=== PATIENT | female | born 1975 | race Caucasian/White ===

== ENCOUNTER 2025-02-08 14:48 | Emergency (ER) | payer MEDICARE, MEDICAID, SELFPAY ==
[2025-02-08 14:49] VITALS: BMI 23.2
--- NOTE | 2025-02-08 14:50 | XR_ITS ---
Examination: Hand, right 3 views Technique: Hand AP, oblique, lateral 3 views Date and time of exam: February 08, 2025 1523 hours INDICATIONS: Injury to the hand 2 days ago with hand pain FINDINGS: No acute fracture. No dislocation No foreign body IMPRESSION: No acute fracture
[2025-02-08 15:09] VITALS: BP 138/83; PULSE 102; RESP 16; TEMP 36.7; O2SAT 94
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
[2025-02-08] MEDS: IBUPROFEN TAB 600 MG TABLET PO (15:57)
== END 2025-02-08 17:56 | disposition home or self-care (01) ==
PROVIDERS: Emergency Provider Emergency Medicine
DX: S63.616A Unspecified sprain of right little finger, initial encounter (principal); M19.041 Primary osteoarthritis, right hand; W22.8XXA Striking against or struck by other objects, initial encounter; Y93.55 Activity, bike riding
CPT/HCPCS: 73130; 73140; 99283; A9270

== ENCOUNTER 2025-09-22 17:24 | Emergency (ER) | payer MEDICAID, SELFPAY ==
[2025-09-22 17:49] VITALS: BP 133/92; PULSE 97; RESP 17; TEMP 36.6; O2SAT 95; BMI 20.3
--- NOTE | 2025-09-22 17:54 | XR_ITS ---
Examination: Hand, left 3 views Technique: Hand AP, oblique, lateral 3 views Date and time of exam: September 22, 2025, 1810 hours INDICATIONS: Hand pain beginning 5 days ago, no trauma FINDINGS: Moderate osteopenia. Significant osteoarthritis distal interphalangeal joints second through fifth digits especially third digit No erosive arthritis Moderate osteoarthritis first carpometacarpal joint IMPRESSION: Osteoarthritis as above especially distal interphalangeal joint third digit
--- NOTE | 2025-09-22 17:54 | XR_ITS ---
Examination: Wrist, left 3 views Technique: Wrist AP, oblique, lateral 3 views Date and time of exam: September 22, 2025, 1810 hours INDICATIONS: Wrist pain 4 days no trauma. FINDINGS: Subluxation at the first carpometacarpal joint, age indeterminate Advanced osteoarthritis first carpometacarpal joint No acute fracture IMPRESSION: Advanced osteoarthritis first carpometacarpal joint Subluxation of the first metacarpal phalangeal joint, age indeterminate, clinical correlation advised
--- NOTE | 2025-09-22 17:54 | PD.EDRME ---
Rapid Medical Screening Exam RME Arrival date/time: 09/22/25 17:24 49-year-old female presents to the Emergency Department today complains of left hand left wrist pain patient for pain worse with movement patient worsened to onset x 3 days patient unsure whether or not she had an injury Chief Complaint: Hand/Wrist Problems Time Seen by Provider: 09/22/25 17:56 Vital signs: Vital Signs Temperature 97.9 F 09/22/25 17:49 Pulse Rate 97 09/22/25 17:49 Respiratory Rate 17 09/22/25 17:49 Blood Pressure 133/92 H 09/22/25 17:49 Pulse Oximetry (%) 95 09/22/25 17:49 Oxygen Delivery Method Room Air 09/22/25 17:49 Vital signs reviewed by provider: Yes Exam: On exam patient well-appearing does not appear look toxic I do not appreciate any acute abnormality of the hand or wrist Clinical Impression: Imaging obtained
[2025-09-22] MEDS: IBUPROFEN TAB 600 MG TABLET PO (18:06)
--- NOTE | 2025-09-22 20:42 | PD.EDHAND ---
Upper Extremity Injury RME/HPI General Chief Complaint: Hand/Wrist Problems Stated Complaint: LEFT HAND PAIN X3D,UNSURE IF SHE INJURED IT Time Seen by Provider: 09/22/25 17:56 Arrival date/time: 09/22/25 17:24 RME / HPI RME / HPI narrative: 09/22/25 17:24 49-year-old female presents to the Emergency Department today complains of left hand left wrist pain patient for pain worse with movement patient worsened to onset x 3 days patient unsure whether or not she had an injury 09/22/25 08:00 PM 49-year-old female presents to the ER complaining of left hand and wrist pain worse with movement x 3 days and she was not sure if she hit it on something. Denies any fever, numbness, tingling, weakness Exam: On exam patient well-appearing does not appear look toxic I do not appreciate any acute abnormality of the hand or wrist Impression: Imaging obtained Related Data Previous Rx's ?Medication ?Instructions ?Recorded hydrocodone 5 mg-acetaminophen 325 1 tab PO BID PRN pain #10 tabs 07/04/23 mg tablet ibuprofen 600 mg tablet 600 mg PO Q6H #30 tabs 07/04/23 Allergies Allergy/AdvReac Type Severity Reaction Status Date / Time divalproex sodium (From Allergy Severe Swelling Verified 09/22/25 17:26 Depakote) of Lip/Tongue/Throat Penicillins Allergy Severe Swelling Verified 09/22/25 17:26 of Lip/Tongue/Throat ED Exam Narrative Physical exam: Constitutional: Vital Signs Reviewed. Well appearing. No acute distress. Not toxic appearing. Head: Normocephalic, atraumatic. Eyes: Conjunctiva clear. ENT: Mucous membranes moist. Neck: Trachea midline. Normal range of motion. No nuchal rigidity. Respiratory: Normal effort. No respiratory distress or accessory muscle use. Neuro: Alert and oriented. Speech normal. No focal gross motor or sensory deficits observed. Skin: Warm, dry, normal color. Psych: Pleasant. Normal affect. Cooperative. Left Upper Extremity: + TTP at L 1st digit. + CMC grind test. + LROM and strength 4/5 secondary to pain for L 1st MCP, and CMC joint. No erythema, warmth. Cap refill < 2 seconds. Herbeden's nodes noted through out digits. No erythema, warmth. Radial pulse 2+ RRR for LUE Course Quality Measures none Orders Category Date Time Status splint [Splint / Immobilizer] STAT Care 09/22/25 20:17 Active XR hand comp LT min 3V Stat Exams 09/22/25 17:54 Completed XR wrist comp LT min 3V Stat Exams 09/22/25 17:54 Completed Ibuprofen Tab [Motrin Tab] Med 09/22/25 17:54 Discontinued 600 mg PO X1 ONE Lidocaine 1% 20 ml [Xylocaine 1% 20 ML] Med 09/22/25 21:25 Discontinued 20 ml INFL X1 ONE Vital Signs Vital signs: Vital Signs Temperature 97.9 F 09/22/25 17:49 Pulse Rate 97 09/22/25 17:49 Respiratory Rate 17 09/22/25 17:49 Blood Pressure 133/92 H 09/22/25 17:49 Pulse Oximetry (%) 95 09/22/25 17:49 Oxygen Delivery Method Room Air 09/22/25 17:49 PROCEDURES: Orthopedic Joint Reduction Joint #1: Time Out Performed: Yes Side: Left Joint Reduction Location: finger Analgesia: none Technique used: traction/counter-traction and direct manipulation Post-reduction neuro exam: intact and no change Post-reduction vascular: intact and no change Post Reduction X-Ray Obtained: No Post Reduction X-Ray Results: not reduced Splint Applied: Yes Patient Tolerated Procedure: well Additional Comments: Patient declined local anesthesia. Thumb spica velcro splint applied, joint is already very mobile. Reduction performed by Dr. Nagy. Extremity Injury MDM Narrative MDM Narrative:: MDM 49-year-old female presents to the ER complaint of left first digit pain which has been persistent for the past 3 days without any specific incident of falling onto or having any direct trauma. X-ray concerning for first carpal metacarpal phalangeal joint subluxation as well as arthrosis Reduction attempted with Dr. Branden Lin and thumb spica placed Digit remains distally neurovascular intact with soft compartments No infectious etiology Given a hyper mobile joint in the setting of significant arthritis reduction was felt to be unsuccessful however thumb spica splint was placed advised rest, ice, elevation, Tylenol and ibuprofen, follow-up with hand surgeon in 1 to 2 days, strict ER return precautions advised Patient data External records reviewed:: None Clinical information provided by:: patient Social determinants that could affect healthcare access:: none Patient has the following chronic illnesses:: As noted How is presenting disease/condition affected by chronic disease/condition?: uneffected by Evaluation data The following diagnostics were reviewed and interpreted by me:: radiology exam(s) Lab and/or radiology exams considered but not ordered:: Additional Labs and radiology considered, but not ordered as they were not clinically indicated at this time. Interpretation Summary: Advanced osteoarthrosis of first digit CMC joint with subluxation age-indeterminate. Osteoarthrosis of DIP joints throughout mainly of the third digit. No acute fracture. Medications / Prescriptions Medications or Prescriptions considered but not ordered:: I considered prescription management (both outpatient prescriptions AND drug treatment in the ER) and decided that this was necessary and was prescribed as charted. Medication administrations:: Medication Administration History Discontinued Medications Ibuprofen (Ibuprofen Tab 600 Mg Tablet) 600 mg PO X1 ONE Stop: 09/22/25 17:55 Last Admin: 09/22/25 18:06 Dose: 600 mg Documented By: MARISELA Lidocaine HCl (Lidocaine Hcl 1% 20 Ml Vial) 20 ml INFL X1 ONE Stop: 09/22/25 21:26 As noted Consultations Consultation(s) initiated? (list below): No Consultation #1 (Physician, Specialty, Details): Dr. Nagy Time: 09:45 Diagnosis Upper Extremity Injury Differential Diagnosis: sprain and strain of wrist, finger sprain and dislocation of finger Most likely diagnosis given after review of the tests above:: First left carpal metacarpal subluxation Admission Indicated Admission indicated?: not indicated Admission Request Was there a request for admission?: No Disposition Plan Disposition Plan: Discharge Discharge Attestation Discharge Attestation: The patient and all family members were given an opportunity to ask questions and understood the discharge instructions. Discharge instructions specifically effects, indications for sooner follow up or return to the emergency department, and the expected course of current diagnosis. Patient condition: Stable Discharge Plan Plan Patient Disposition: HOME (Self Care) Patient condition on transfer: Stable Prescriptions/Referrals Prescriptions/Med Rec: No Action hydrocodone-acetaminophen 5-325 mg tablet 1 tab PO BID MDD 10 PRN (Reason: pain) Qty: 10 0RF ibuprofen 600 mg tablet 600 mg PO Q6H Qty: 30 0RF Referrals: No Primary/Family,Physician [Primary Care Provider] - In 1 week LUCIANA MAYORGA [Referring Provider] - In 1 week Problem List Clinical Impression: Dislocation of finger Impression comment: Left first carpometacarpal subluxation Patient/Caregiver Discharge Instructions Education Materials: Osteoarthritis Thumb Additional Instructions: Follow up with your primary medical doctor and a hand surgeon within 24 hours. Return to the Emergency Room immediately for any new, worsening, continuing symptoms or any concerns at all. Return to the Emergency Room within 24 hours if you are unable to follow up with your primary medical doctor and a hand surgeon within 24 hours. Print Language: Danish Stand Alone Forms: Yany Award Info., Patient Portal Info Letter PA/PANEL INSTALLER Supervising Physician PA/PANEL INSTALLER Supervising Physician: Dr. Nagy
[2025-09-22 20:59] VITALS: BP 122/86; PULSE 100; RESP 18; TEMP 36.8; O2SAT 95
== END 2025-09-22 21:50 | disposition home or self-care (01) ==
PROVIDERS: Emergency Provider Emergency Medicine
DX: S63.052A Subluxation of other carpometacarpal joint of left hand, initial encounter (principal); S63.045A Dislocation of carpometacarpal joint of left thumb, initial encounter; M25.532 Pain in left wrist
CPT/HCPCS: 26700; 73110; 73130; 99283; A9270

== ENCOUNTER 2025-09-25 04:50 | Emergency (ER) | payer MEDICAID, SELFPAY ==
[2025-09-25] VITALS (10 sets, daily range): BP systolic 93–136; BP diastolic 66–96; PULSE 70–94; RESP 16–18; TEMP 36.3–36.7; O2SAT 90–100
--- NOTE | 2025-09-25 | XR_ITS ---
MRI abdomen, without contrast. MRCP Date and time of exam: September 25, 2025, 1256 hours INDICATIONS: Nausea vomiting diarrhea today, enlarged common bile duct [address] study this morning Technique: Multiple axial and coronal images of the abdomen have been obtained with the Siemens 1.5T MRI scanner. Images obtained included T1 weighted transverse images, T2-weighted transverse images, T2-weighted transverse images fat-suppressed, T2 weighted haste fat suppressed transverse images, T1 weighted images, in and out of phase images, T2-weighted coronal images, breath hold, T2 weighted haze coronal images as well as T2 weighted coronal thick slab images, MRCP. Findings: Intrahepatic biliary tract dilatation Absent gallbladder Abnormal enlarged common bile duct 13 mm Meniscus defect in the distal common bile duct, coronal image 12 measuring 6 mm Minimal dilatation pancreatic duct No peripancreatic edema Spleen is not enlarged No ascites IMPRESSION: Abnormal extrahepatic biliary tract dilatation with meniscus defect in the distal common bile duct suspicious for 6 mm impacted stone, recommend ERCP follow-up
--- NOTE | 2025-09-25 05:00 | PC.NURSE ---
ASSUMED CARE OF PATIENT, PT COMES FROM HALF-WAY C/O NAUSEA AND VOMITING. UPON ARRIVAL TO ER PATIENT ABLE TO ANSWER HER NAME AND BUT STATES SHE DOESNT KNOW ANYTHING ELSE. PT REFUSING IV, MEDS, AND LABS. PT IN NO ACUTE DISTRESS, HAS NOT VOMITED SINCE ARRIVAL TO ER AND WILL CONTINUE WITH PLAN OF CARE
--- NOTE | 2025-09-25 05:04 | EDRME_ITS ---
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 No other complaints. I have greeted and performed a focused initial assessment of this patient. A c omprehensive ED assessment and evaluation of the patient, analysis of all test results, and completion of the medical decision making process will be conducted by additional ED providers. Exam: Diffuse abdominal pain, difficult to localize. Clinical Impression: AMS, Abdominal pain, Vomiting.
--- NOTE | 2025-09-25 05:36 | EKG_ITS ---
[facility] Test Date: 2025-09-25 Pat Name: JAISON JEONG Department: Room: - Gender: Female Insole Tacker: : 1975 Requested By: Kelechi Schumacher Order Number: [id number] Reading MD: Kelechi Schumacher Measurements Intervals [place] Rate: 95 P: 74 WA: 183 QRS: 71 QRSD: 93 T: 45 QT: 366 QTc: 461 Interpretive Statements SINUS RHYTHM POSSIBLE LEFT ATRIAL ENLARGEMENT [-0.1mV P-WAVE IN V1/V2] No previous ECG available for comparison /store/S0/[id number].pdf
--- NOTE | 2025-09-25 05:36 | XR_ITS ---
EXAMINATION: AP chest single view TECHNIQUE: AP portable semiupright chest single view Date and time: September 25, 2025, 0620 hours INDICATIONS: Shortness of breath chest pain today. FINDINGS: Normal heart size No pneumonia or pulmonary edema. Prominent osteopenia with old fracture left clavicle IMPRESSION: No active disease
--- NOTE | 2025-09-25 05:37 | XR_ITS ---
Examination: CT brain head without contrast. 2-D sagittal coronal reconstructions Date and time of exam: September 25, 2025, 0808 hours INDICATIONS: Altered mental status beginning this morning CTDI: vol (mGy): 45.6 DLP: (mGycm): 861 Technique: Multiple CT axial sections of the brain have been obtained, 5 mm slice thickness. Contrast has not been administered. 2-D sagittal, coronal reconstructions have been obtained Low dose protocols were performed. One or more of the following dose reduction techniques were used; automated exposure control, adjustment of the mA and/or KV according to patient size, use of iterative reconstruction technique. Findings: No significant ventricular enlargement. Intra-axial or extra-axial hemorrhage density is not seen. No mass effect or midline shift Basal cisterns are not remarkable. Fourth ventricle is midline. Cranial vault intact. Impression: Negative for acute hemorrhage, mass effect or midline shift Advise clinical correlation and follow-up accordingly
--- NOTE | 2025-09-25 05:37 | XR_ITS ---
Examination: CT abdomen with intravenous contrast CT pelvis with intravenous contrast 2-D coronal reconstructions 2-D sagittal reconstructions Date and time of exam: September 25, 2025, 0810 hours INDICATIONS: Generalized abdominal pain with nausea vomiting today. CTDI: vol (mGy) 11.8 DLP: (mGycm) 556 Technique: Multiple axial sections of the abdomen and pelvis have been obtained. 64 slice high-resolution scanner used. 3 mm axial sections have been obtained, post intravenous injection 60 cc [id number] 2-D sagittal, coronal reconstructions obtained. Low dose protocols were performed. One or more of the following dose reduction techniques were used; automated exposure control, adjustment of the mA and/or KV according to patient size, use of iterative reconstruction technique. Findings: Intrahepatic biliary tract dilatation Absent gallbladder Abnormal enlargement common bile duct 15 mm No definite common bile duct stones Minimal dilatation pancreatic duct 2.5 mm No pancreatic mass Spleen not enlarged No adrenal mass Normal or ureteral calculi, no hydronephrosis Aortic calcification no aneurysmal dilatation No bowel obstruction No pericecal inflammatory change No diverticulitis Atrophic uterus No pelvic mass Bladder intact Prominent osteopenia IMPRESSION: Abnormal extrahepatic biliary tract dilatation, common bile duct 15 mm, recommend hepatobiliary sonography follow-up
[2025-09-25 06:11] LABS: Influenza A Ag Negative; Influenza B Ag Negative
[2025-09-25 06:17] LABS: Base Excess, Venous 1 (-3-3); O2 Saturation, Venous 96 % (96-97); PCO2, Venous 45 mmHg (36-56); PO2, Venous 80 mmHg (15-58); pH, Venous 7.38 (7.33-7.66)
[2025-09-25 06:18] LABS: Lactate (Lactic Acid) 1.0 mMol/L (0.4-2.0)
[2025-09-25 06:20] LABS: Beta Hydroxybutyrate 0.1 mmol/L (<0.6)
[2025-09-25 06:36] LABS: Basophils # (Auto) 0.0 Thou/mm3 (0.0-0.2); Basophils % (Auto) 0 % (0-2.5); Eosinophils # (Auto) 0.1 Thou/mm3 (0.0-0.5); Eosinophils % (Auto) 1 % (0-10); Hematocrit 43.1 % (36.0-46.0); Hemoglobin 15.1 g/dL (12.0-16.0); Immature Granulocytes Auto 0.04 Thou/mm3 (0.00-0.00); Lymphocytes # (Auto) 1.5 Thou/mm3 (1.0-4.8); Lymphocytes % (Auto) 10 % (10-50); Mean Corpuscular HGB Conc 35.0 g/dl (31.0-37.0); Mean Corpuscular Hemoglobin 31.3 pg (25.0-35.0); Mean Corpuscular Volume 89 fL (80-100); Monocytes # (Auto) 1.0 Thou/mm3 (0.0-0.8); Monocytes % (Auto) 6 % (0-12); Neutrophils # (Auto) 12.9 Thou/mm3 (1.8-7.7); Neutrophils % (Auto) 83 % (37-80); Nucleated Red Blood Cell # 0.00 Thou/mm3 (0.00-0.00); Nucleated Red Blood Cell % 0 /100 WBC (0); Platelet Count 244 Thou/mm3 (140-440); RDW Standard Deviation 40.9 fL (36.4-46.3); Red Blood Count 4.83 Miln/mm3 (4.00-5.20); White Blood Count 15.7 Thou/mm3 (3.6-11.0)
[2025-09-25 06:46] LABS: Ammonia < 10 uMol/L (11-32)
[2025-09-25 06:50] LABS: HCG,Qualitative Serum Negative
[2025-09-25 06:51] LABS: Sed Rate (ESR) 11 mm/hr (0-30)
[2025-09-25 06:52] LABS: Alanine Aminotransferase 11 U/L (10-49); Albumin, Serum 4.2 gm/dL (3.5-5.0); Albumin/Globulin Ratio 1.8 (1.2-2.2); Alcohol, Blood Medical < 3.0 mg/dL (0-10.0); Alkaline Phosphatase 172 U/L (46-116); Amylase 88 U/L (30-118); Aspartate Amino Transferase 19 U/L (0-34); BUN/Creatinine Ratio 33 Ratio (12-20); Bilirubin,Direct < 0.1 mg/dL (0.0-0.3); Bilirubin,Total 0.2 mg/dL (0.3-1.2); Blood Urea Nitrogen 23 mg/dL (9-23); C-Reactive Protein < 0.5 mg/dL (0.0-0.9); Calcium 8.5 mg/dL (8.3-10.6); Calcium (Corrected) 8.5 mg/dL (8.5-10.1); Chloride 107 mMol/L (98-107); Creatine Kinase 71 U/L (34-171); Creatinine (Component) 0.7 mg/dL (0.6-1.3); Globulin 2.4 gm/dL (2.3-3.5); Glucose 113 mg/dL (74-106); Lipase 43 U/L (12-53); Magnesium 1.8 mg/dL (1.6-2.6); Osmolality,Calculated 285 (275-295); Potassium 4.1 mMol/L (3.4-5.1); Procalcitonin 0.04 ng/ml (0.0-0.49); Sodium 141 mMol/L (136-145); Thyroid Stimulating Hormone 2.25 uIU/mL (0.55-4.78); Total Protein 6.6 gm/dL (5.7-8.2); Troponin I < 0.002 ng/mL (0.0-0.045); eGFR > 60 See Note
[2025-09-25 07:00] LABS: Anion Gap 10 (7-16); Carbon Dioxide 24.1 mMol/L (20.0-31.0)
[2025-09-25 07:10] LABS: B-Type Natriuretic Peptide < 20 pg/mL (0-100)
[2025-09-25] MEDS: LEVOFLOXACIN/D5W 500 MG IVPB 500 MG/100 ML BAG 100 MG IV (07:50)
[2025-09-25] MEDS: SODIUM CHLORIDE 0.9% 1000 ML 1,000 ML 999 ML IV (07:52)
[2025-09-25 07:54] LABS: Collection Type, Urine Clean Catch
--- NOTE | 2025-09-25 07:59 | PC.NURSE ---
PT TAKEN TO CT.
[2025-09-25 08:06] LABS: Amphetamine/Methamp Scrn,U Positive (Negative); Bacteria,Urine Rare; Barbiturate Screen,Urine Negative (Negative); Benzodiazepines Screen,Urine Negative (Negative); Benzoylecgonine Screen, Ur Negative (Negative); Bilirubin,Urine Negative (Negative); Blood,Urine Negative (Negative); Clarity,Urine Clear (Clear/Hazy); Color,Urine Lt-Yellow (Lt Yel-Yel); Culture Indicated,Urine Not Indicated; Fentanyl Screen,Urine Positive (Negative); Glucose, Urine Negative (Negative); Ketones,Urine Negative (Negative); Leukocyte Esterase,Urine Positive (Negative); Nitrite,Urine Negative (Negative); Opiate Screen,Urine Negative (Negative); PH,Urine 6.5 (5.0-7.0); Protein,Urine Negative (Neg - Trace); RBC,Urine 6 /hpf (0-3); Specific Gravity,Urine 1.026 (1.001-1.035); Squamous Epithelial Cell,Urine 6 /hpf (0-5); THC Screen,Urine Positive (Negative); Urobilinogen,Urine Negative mg/dL (0.0-1.0); WBC,Urine 8 /hpf (0-5)
--- NOTE | 2025-09-25 09:44 | XR_ITS ---
Examination: Abdomen sonogram, Limited Date and time of exam: September 25, 2025, 1014 hours INDICATIONS: Enlarged common bile duct on CT examination today Technique: Real-time loving scale transabdominal sonographic images of the upper abdomen obtained. Findings: Absent gallbladder Enlarged common bile duct 17 mm no definite stones Pancreatic head 2.2 cm Liver 14.3 cm smooth contour Normal hepatopetal portal venous flow Patent IVC IMPRESSION: Enlarged common bile duct 17 mm, consider MRCP follow-up to exclude common bile duct stricture and/or stones
--- NOTE | 2025-09-25 12:02 | EDNOTE_ITS ---
Nausea/Vomit./Diarrhea-RME/HPI General Chief complaint: Nausea/Vomiting/Diarrhea Stated complaint: AMS, VOMITING Time Seen by Provider: 09/25/25 06:33 Arrival date/time: 09/25/25 04:50 Limitations: no limitations RME / HPI RME / HPI Narrative: [facility] to possible AMS, abdominal pain and vomiting just [employer]. No other complaints. I have greeted and performed a focused initial assessment of this patient. A comprehensive ED assessment and evaluation of the patient, analysis of all test results, and completion of the medical decision making process will be conducted by additional ED providers. DR. BROWNE MAIN ED EVALUATION: 49 year old female presents to the ED [facility] for evalaution of altered mental status, nausea, and vomiting today. Per medics, staff at the facility reported the patient had sudden onset of nausea and vomiting. On their arrival, patient was GCS of 14 and vital signs were within normal limits. Evidently en route to ED medics attempted an IV but the patient was refusing and arguing with them. No IV fluids or medications given en route. Exam: Diffuse abdominal pain, difficult to localize. Impression: AMS, Abdominal pain, Vomiting. Related Data Home Medications ?Medication ?Instructions ?Recorded ?Confirmed No Known Home Medications 09/25/2509/12 Allergies Allergy/AdvReac Type Severity Reaction Status Date / Time divalproex sodium (From Allergy Severe Swelling Verified 09/25/25 05:33 Depakote) of Lip/Tongue/Throat Penicillins Allergy Severe Swelling Verified 09/25/25 05:33 of Lip/Tongue/Throat Review of Systems Review of Systems Systems Reviewed: All systems reviewed, normal except as documented Past Medical History Past Medical History NEUROLOGIC: Positive Seizures MUSCULOSKELETAL: Positive Arthritis Social History SMOKING STATUS: Never smoker SUBSTANCE USE: does not use ED Exam General Limitations: Present no limitations General appearance: Present other (Somnolent, grimacing in pain, unable to answer my questions) Head Head exam: Present atraumatic, normocephalic and normal inspection Eye Eye exam: Present normal appearance, PERRL and EOMI ENT ENT exam: Present normal exam, normal oropharynx and mucous membranes moist Neck Neck exam: Present normal inspection, full ROM and trachea midline Chest Chest inspection: Present normal inspection and symmetric chest wall rise Respiratory Respiratory exam: Present normal lung sounds bilaterally Cardiovascular Cardiovascular exam: Present regular rate, normal rhythm and normal heart sounds Abdominal Exam Abdominal exam: Present soft, tenderness (mid abdomen with percussion tenderness), rebound and hypoactive bowel sounds Extremities Exam Extremities exam: Present normal inspection and full ROM Back Exam Back exam: Present normal inspection and full ROM Neurological Exam Neurological exam: Present alert, oriented X3 and CN II-XII intact Psychiatric Psychiatric exam: Present normal affect and normal mood Skin Skin exam: Present warm, dry, intact and normal color Course Course Course Narrative: On reassessment the patient was awake, alert, oriented and able to ask questions. Quality Measures none Orders Category Date Time Status Bedside COVID-19 Antigen Test NOW Care 09/25/25 05:[address] Screening NOW Care 09/25/25 05:37 Completed EKG (ED ONLY) *Do not use* NOW Care 09/25/25 05:36 Completed MRI Screening NOW Care 09/25/25 11:29 Completed Saline [Insert IV] NOW Care 09/25/25 05:03 Completed Referral - Digital Printer Operator Stat Cons 09/25/25 14:[address] abdomen pelvis w con Stat Exams 09/25/25 05:[address] head/brain wo con Stat Exams 09/25/25 05:37 Completed EKG (ED Only) Stat Exams 09/25/25 05:36 Draft MR MRCP Stat Exams 09/25/25 Completed US gall bladder Stat Exams 09/25/25 09:44 Completed XR chest 1V portable Stat Exams 09/25/25 05:36 Completed Alcohol, Blood Medical Stat Lab 09/25/25 06:10 Completed Ammonia Stat Lab 09/25/25 06:10 Completed Amylase Stat Lab 09/25/25 06:10 Completed BNP [B-Type Natriuretic Peptide] Stat Lab 09/25/25 06:10 Completed Beta Hydroxybutyrate Stat Lab 09/25/25 06:10 Completed Bilirubin,Direct Stat Lab 09/25/25 06:10 Completed Blood Culture (Lab) Stat Lab 09/25/25 06:10 Received CBC Stat Lab 09/25/25 06:10 Completed CK [Creatine Kinase] Stat Lab 09/25/25 06:10 Completed CMP [Comprehensive Metabolic Panel] Stat Lab 09/25/25 06:10 Completed CRP [C-Reactive Protein] Stat Lab 09/25/25 06:10 Completed Drug Screen,Urine Stat Lab 09/25/25 07:38 Completed ESR [Sed Rate (ESR)] Stat Lab 09/25/25 06:10 Completed HCG,Qualitative Serum Stat Lab 09/25/25 06:10 Completed Influenza A & B Rapid Panel Stat Lab 09/25/25 05:15 Completed Lactate (Lactic Acid) Stat Lab 09/25/25 06:10 Completed Lipase Stat Lab 09/25/25 06:10 Completed Magnesium Stat Lab 09/25/25 06:10 Completed Procalcitonin Stat Lab 09/25/25 06:10 Completed TSH [Thyroid Stimulating Hormone] Stat Lab 09/25/25 06:10 Completed Troponin I Stat Lab 09/25/25 06:10 Completed UA, C/S IF [Urinalysis, C/S if Indicated] Stat Lab 09/25/25 07:38 Completed VBG [Venous Blood Gas] Stat Lab 09/25/25 06:10 Completed HYDROmorphone INJ [Dilaudid Inj] Med 09/25/25 16:27 Discontinued 1 mg IVP X1 ONE Ketorolac Inj [Toradol Inj] Med 09/25/25 05:03 Discontinued 30 mg IVP X1 ONE Levofloxacin/D5w 500 mg Ivpb [Levaquin Ivpb] Med 09/25/25 06:58 Discontinued 500 mg in 100 ml IV X1 Nicotine Patch [Nicoderm Patch] Med 09/25/25 15:56 Discontinued 14 mg TOP X1 ONE Ondansetron Inj [Zofran Inj] Med 09/25/25 05:03 Discontinued 4 mg IVP X1 ONE Ondansetron Inj [Zofran Inj] Med 09/25/25 16:27 Discontinued 4 mg IVP X1 ONE Sodium Chloride 0.9% 1000 ml [Ns] 1,000 ml Med 09/25/25 05:03 Discontinued IV 999 mls/hr Sodium Chloride 0.9% 1000 ml [Ns] 1,000 ml Med 09/25/25 06:58 Discontinued IV 999 mls/hr Vital Signs Vital signs: Vital Signs Temperature 97.4 F 09/25/25 04:58 Pulse Rate 94 09/25/25 04:58 Respiratory Rate 18 09/25/25 04:58 Blood Pressure 130/95 H 09/25/25 04:58 Pulse Oximetry (%) 93 L 09/25/25 04:58 Oxygen Delivery Method Room Air 09/25/25 04:58 Pulse ox is 93% on room air which is adequate. Nausea/Vomiting/Diarrhea MDM Narrative MDM Narrative:: Norma Combs am scribing for and in the presence of Dr. Browne. Patient data External records reviewed:: [facility] previous records and EMS form Clinical information provided by:: patient and EMS Social determinants that could affect healthcare access:: housing (currently homeless ) Patient has the following chronic illnesses:: Seizures How is presenting disease/condition affected by chronic disease/condition?: exacerbated by Evaluation data The following diagnostics were reviewed and interpreted by me:: lab results, radiology exam(s) and EKG tracing(s) (EKG @ 06:23 AM, interpreted by me, normal sinus rhythm, rate 95, no STEMI. ) Lab and/or radiology exams considered but not ordered:: None Interpretation Summary: Ordering Physician: Kelechi Salamanca MD Date of Service: 09/25/25 Procedure(s): XR chest 1V portable Accession Number(s): [id number] cc: Kelechi Salamanca MD; Marco Tapia MD; NO PRIMARY/FAMILY,PHYSICIAN~ EXAMINATION: AP chest single view TECHNIQUE: AP portable semiupright chest single view Date and time: September 25, 2025, 0620 hours INDICATIONS: Shortness of breath chest pain today. FINDINGS: Normal heart size No pneumonia or pulmonary edema. Prominent osteopenia with old fracture left clavicle IMPRESSION: No active disease Dictated By: Marco Tapia MD Signed By: <Electronically signed by Marco Tapia MD in OV> 09/25/25 0946 Ordering Physician: Kelechi Salamanca MD Date of Service: 09/25/25 Procedure(s): CT abdomen pelvis w con Accession Number(s): [id number] cc: Kelechi Salamanca MD; Marco Tapia MD; NO PRIMARY/FAMILY,PHYSICIAN~ Examination: CT abdomen with intravenous contrast CT pelvis with intravenous contrast 2-D coronal reconstructions 2-D sagittal reconstructions Date and time of exam: September 25, 2025, 0810 hours INDICATIONS: Generalized abdominal pain with nausea vomiting today. CTDI: vol (mGy) 11.8 DLP: (mGycm) 556 Technique: Multiple axial sections of the abdomen and pelvis have been obtained. 64 slice high-resolution scanner used. 3 mm axial sections have been obtained, post intravenous injection 60 cc [id number] 2-D sagittal, coronal reconstructions obtained. Low dose protocols were performed. One or more of the following dose reduction techniques were used; automated exposure control, adjustment of the mA and/or KV according to patient size, use of iterative reconstruction technique. Findings: Intrahepatic biliary tract dilatation Absent gallbladder Abnormal enlargement common bile duct 15 mm No definite common bile duct stones Minimal dilatation pancreatic duct 2.5 mm No pancreatic mass Spleen not enlarged No adrenal mass Normal or ureteral calculi, no hydronephrosis Aortic calcification no aneurysmal dilatation No bowel obstruction No pericecal inflammatory change No diverticulitis Atrophic uterus No pelvic mass Bladder intact Prominent osteopenia IMPRESSION: Abnormal extrahepatic biliary tract dilatation, common bile duct 15 mm, recommend hepatobiliary sonography follow-up Dictated By: Marco Tapia MD Signed By: <Electronically signed by Marco Tapia MD in OV> 09/25/25 0925 = Ordering Physician: Kelechi Salamanca MD Date of Service: 09/25/25 Procedure(s): CT head/brain wo [facility] Accession Number(s): [id number] cc: Kelechi Salamanca MD; Marco Tapia MD; NO PRIMARY/FAMILY,PHYSICIAN~ Examination: CT brain head without contrast. 2-D sagittal coronal reconstructions Date and time of exam: September 25, 2025, 0808 hours INDICATIONS: Altered mental status beginning this morning CTDI: vol (mGy): 45.6 DLP: (mGycm): 861 Technique: Multiple CT axial sections of the brain have been obtained, 5 mm slice thickness. Contrast has not been administered. 2-D sagittal, coronal reconstructions have been obtained Low dose protocols were performed. One or more of the following dose reduction techniques were used; automated exposure control, adjustment of the mA and/or KV according to patient size, use of iterative reconstruction technique. Findings: No significant ventricular enlargement. Intra-axial or extra-axial hemorrhage density is not seen. No mass effect or midline shift Basal cisterns are not remarkable. Fourth ventricle is midline. Cranial vault intact. Impression: Negative for acute hemorrhage, mass effect or midline shift Advise clinical correlation and follow-up accordingly Dictated By: Marco Tapia MD Signed By: <Electronically signed by Marco Tapia MD in OV> 09/25/25 0926 Ordering Physician: Josiah Browne MD Date of Service: 09/25/25 Procedure(s): US gall bladder Accession Number(s): [id number] cc: Josiah Browne MD; Marco Tapia MD; NO PRIMARY/FAMILY,PHYSICIAN~ Examination: Abdomen sonogram, Limited Date and time of exam: September 25, 2025, 1014 hours INDICATIONS: Enlarged common bile duct on CT examination today Technique: Real-time loving scale transabdominal sonographic images of the upper abdomen obtained. Findings: Absent gallbladder Enlarged common bile duct 17 mm no definite stones Pancreatic head 2.2 cm Liver 14.3 cm smooth contour Normal hepatopetal portal venous flow Patent IVC IMPRESSION: Enlarged common bile duct 17 mm, consider MRCP follow-up to exclude common bile duct stricture and/or stones Dictated By: Marco Tapia MD Signed By: <Electronically signed by Marco Tapia MD in OV> 09/25/25 1055 ===== Ordering Physician: Josiah Browne MD Date of Service: 09/25/25 Procedure(s): MR MRCP Accession Number(s): [id number] cc: Josiah Browne MD; Marco Tapia MD; NO PRIMARY/FAMILY,PHYSICIAN~ MRI abdomen, without contrast. MRCP Date and time of exam: September 25, 2025, 1256 hours INDICATIONS: Nausea vomiting diarrhea today, enlarged common bile duct [address] study this morning Technique: Multiple axial and coronal images of the abdomen have been obtained with the Siemens 1.5T MRI scanner. Images obtained included T1 weighted transverse images, T2-weighted transverse images, T2-weighted transverse images fat-suppressed, T2 weighted haste fat suppressed transverse images, T1 weighted images, in and out of phase images, T2-weighted coronal images, breath hold, T2 weighted haze coronal images as well as T2 weighted coronal thick slab images, MRCP. Findings: Intrahepatic biliary tract dilatation Absent gallbladder Abnormal enlarged common bile duct 13 mm Meniscus defect in the distal common bile duct, coronal image 12 measuring 6 mm Minimal dilatation pancreatic duct No peripancreatic edema Spleen is not enlarged No ascites IMPRESSION: Abnormal extrahepatic biliary tract dilatation with meniscus defect in the distal common bile duct suspicious for 6 mm impacted stone, recommend ERCP follow-up Dictated By: Marco Tapia MD Signed By: <Electronically signed by Marco Tapia MD in OV> 09/25/25 1410 Medications / Prescriptions Medications / Prescriptions considered but not ordered:: None Medication administrations:: Medication Administration History Discontinued Medications Hydromorphone HCl (Hydromorphone Inj 2 Mg/Ml Vial) 1 mg IVP X1 ONE Stop: 09/25/25 16:28 Last Admin: 09/25/25 16:35 Dose: 1 mg Documented By: BD Sodium Chloride (Ns) 1,000 mls @ 999 mls/hr IV .Q1H1M ONE Stop: 09/25/25 06:03 Last Admin: 09/25/25 05:33 Dose: Not Given Documented By: AC Non-Admin Reason: Patient Refused Sodium Chloride (Ns) 1,000 mls @ 999 mls/hr IV .Q1H1M ONE Stop: 09/25/25 07:58 Last Infusion: 09/25/25 11:27 Dose: Infused Documented By: Admin: 09/25/25 07:52 Dose: 999 mls/hr Documented By: SHELLI Levofloxacin/Dextrose (Levaquin Ivpb) 500 mg in 100 mls @ 100 mls/hr IV X1 ONE Stop: 09/25/25 07:57 Last Infusion: 09/25/25 09:34 Dose: Infused Documented By: Admin: 09/25/25 07:50 Dose: 100 mls/hr Documented By: SHELLI Ketorolac Tromethamine (Ketorolac Inj 30 Mg/Ml Vial) 30 mg IVP X1 ONE Stop: 09/25/25 05:04 Last Admin: 09/25/25 05:33 Dose: Not Given Documented By: BRIEN Non-Admin Reason: Patient Refused Nicotine (Nicotine Patch 14 Mg/24 Hr Patch.Td24) 14 mg TOP X1 ONE Stop: 09/25/25 15:57 Last Admin: 09/25/25 16:00 Dose: 14 mg Documented By: KARYN Ondansetron HCl (Ondansetron Inj 2 Mg/Ml Inj 2 Ml) 4 mg IVP X1 ONE; Protocol Stop: 09/25/25 05:04 Last Admin: 09/25/25 05:33 Dose: Not Given Documented By: BRIEN Non-Admin Reason: Patient Refused Ondansetron HCl (Ondansetron Inj 2 Mg/Ml Inj 2 Ml) 4 mg IVP X1 ONE; Protocol Stop: 09/25/25 16:28 Last Admin: 09/25/25 16:35 Dose: 4 mg Documented By: KARYN See above Consultations Consultation(s) initiated? (list below): Yes Consultation #1 (Physician, Specialty, Details): I spoke with transfer nurse at [facility]. Discussed patients PMHx, HPI, ED course, e xam findings, labs, and radiology results. States they will present the case to their Time: 15:46 Consultation #2 (Physician, Specialty, Details): Patient has been accepted by PATY Cooper at [facility]. Time: 16:20 Diagnosis Nausea Differential Diagnosis: food poisoning, gastroenteritis, drug-induced nausea and vomiting and dehydration Most likely diagnosis given after review of the tests above:: Abdominal pain Drug abuse CBD stone Admission Indicated Admission indicated?: not indicated Explain why admission is indicated or not indicated:: Txfer for ERCP. Admission Request Was there a request for admission?: No Disposition Plan Disposition Plan: Transfer Discharge Plan Plan Patient Disposition: [facility] Pt Being Transferred to: [facility] Service Needed for Transfer: Gastroenterology Prescriptions/Referrals Prescriptions/Med Rec: No Action No Known Home Medications Referrals: No Primary/Family,Physician [Primary Care Provider] - In 1 week Problem List Clinical Impression: Abdominal pain, Drug abuse, Common bile duct stone Patient/Caregiver Discharge Instructions Print Language: Maltese Stand Alone Forms: [employer] Award Info., Patient Portal Info Letter
--- NOTE | 2025-09-25 12:50 | PC.NURSE ---
PT TAKEN TO MRI.
--- NOTE | 2025-09-25 15:08 | PC.CM ---
Addendum entered by Luis Oh RN 09/25/25 16:10: 1608-Patient accepted ER to ER at [facility] by Dr. Pardo, phone number for report [phone]. ER CN Rosa updated. Addendum entered by Luis Oh RN 09/25/25 15:45: 1540- Call to [facility] TC, spoke with RONI Joe and provided clinical information as well as contact information for TC RN and ER MD Robertson. Images shared via synapse. Connected TC RN with Dr. Robertson in ER for EMTALA questionnaire. Pending update form them at this time. Addendum entered by Luis Oh RN 09/25/25 15:43: 1535- Call to [facility], spoke to Olegario in transfer center, provided clinical information and contact information for TC and ER MD Robertson. He is awaiting clinical reports sent via fax for review, pending call back from them at this time. Addendum entered by Luis Oh RN 09/25/25 15:41: 1530- Call to [facility] TC, left message on recorded line, providing clinical information and contact information for TC RN and ER MD Robertson. Pending return call from them at this time. Images shared via synapse. Original Note: 1430- Received call from Dr. Robertson in ER, requesting transfer for GI services, patient is needing ERCP for impacted stone in common bile duct. Transfer packet created and imaging CD has been added to packet. Images sent to [facility], and [facility] via synapse.
[2025-09-25] MEDS: NICOTINE PATCH 14 MG/24 HR PATCH.TD24 TOP (16:00)
--- NOTE | 2025-09-25 16:22 | PC.NURSE ---
PT REQUESTING PAIN MEDICATION 07/22 PAIN NOTIFIED PROVIDER HOLLIE
[2025-09-25] MEDS: HYDROmorphone INJ 2 MG/ML VIAL 1 MG IVP (16:35)
[2025-09-25] MEDS: ONDANSETRON INJ 2 MG/ML INJ 2 ML 4 MG IVP (16:35)
== END 2025-09-25 17:06 | disposition short-term general hospital (02) ==
PROVIDERS: Emergency Medicine; Emergency Provider Family Medicine
DX: K80.50 Calculus of bile duct without cholangitis or cholecystitis without obstruction (principal)
CPT/HCPCS: 36415; 70450; 71045; 74177; 74181; 76705; 80053; 80307; 80320; 81001; 82010; 82140; 82150; 82248; 82550; 82803; 83605; 83690; 83735; 83880; 84145; 84443; 84484; 84703; 85025; 85652; 86140; 87040; 87502; 87635; 93005; 96361; 96365; 96366; 96375; 99285; A4649; J1171; J1956; J2405; J7030; Q9967; A9270; G0480